=== PATIENT | female | born 1990 | race Two or more races ===

== ENCOUNTER 2020-03-07 14:00 | Emergency (ER) | payer MEDICAID ==
[~2020-03-07] VITALS: Ht 165.1 cm; Wt 77.0 kg
[2020-03-07] MEDS ORDERED: ACETAMINOPHEN 325MG TABLET PO ONE (15:30)
[2020-03-07 15:45] VITALS: BP 114/73
== END 2020-03-07 15:47 | disposition home or self-care (01) ==
LOC: ER 14:00
DX: M79.672 Pain in left foot (principal)
CPT/HCPCS: 73630; 81025; 99283

== ENCOUNTER 2021-01-10 18:04 | Emergency (ER) | payer MEDICAID ==
[~2021-01-10] VITALS: Ht 162.6 cm; Wt 79.0 kg
[2021-01-10 21:13] VITALS: BP 110/65
== END 2021-01-10 21:31 | disposition home or self-care (01) ==
LOC: ER 18:04
DX: O26.891 Other specified pregnancy related conditions, first trimester (principal); Z3A.14 14 weeks gestation of pregnancy; F17.290 Nicotine dependence, other tobacco product, uncomplicated; Z20.822 Contact with and (suspected) exposure to COVID-19
CPT/HCPCS: 99281; C9803; U0003; U0005